=== PATIENT | female | born 1965 | race African-American/Black ===

== ENCOUNTER → 2020-05-04 13:57 | Outpatient (BNVA) | payer OTHER, SELFPAY | PROVIDERS: PCP Student in an Organized Health Care Education/Training Program; Referring Provider Emergency Medicine; Visit Provider Surgery | DX: K43.9 Ventral hernia without obstruction or gangrene (principal) | CPT/HCPCS: 99203 ==

== ENCOUNTER 2020-05-13 08:52 | Outpatient (REF) | payer OTHER, SELFPAY ==
--- NOTE | 2020-05-13 08:58 | US_ITS ---
EXAMINATION: US ABDOMEN LIMITED CLINICAL INFORMATION: Palpable mass midline abdomen cephalic to umbilicus. COMPARISON: None TECHNIQUE: Real-time imaging of the midline abdomen superior to umbilicus. FINDINGS: There is a small hypoechoic linear defect within the rectus abdominis muscle measuring 0.77 cm wide and corresponding to palpable lump consistent with small hernia containing mesentery. No bowel loop seen. There is no vascularity either. US/US abdomen limited IMPRESSION: Small midline supraumbilical hernia containing mesenteric fat.
== END 2020-05-13 08:53 | disposition home or self-care (01) ==
LOC: HO.HMGCX 08:52
PROVIDERS: PCP Student in an Organized Health Care Education/Training Program; Visit Provider Emergency Medicine
DX: R22.2 Localized swelling, mass and lump, trunk (principal)
CPT/HCPCS: 76705

== ENCOUNTER 2020-05-23 11:30 | Outpatient (REF) | payer OTHER, SELFPAY ==
--- NOTE | 2020-05-23 | MM_ITS ---
EXAMINATION: MM SCREENING DIGITAL BREAST TOMOSYNTHESIS, BILATERAL CLINICAL INFORMATION: Screening. Asymptomatic. The lifetime risk of breast cancer based on the Tyrer-Cuzick Model is 8%. COMPARISON: Mammography: 10/18/2018, 10/09/2017, 09/21/2016 TECHNIQUE: Digital breast tomosynthesis is performed in both the craniocaudal and mediolateral oblique views along with computer-aided detection (CAD). Synthesized 2D images are generated from the tomosynthesis. FINDINGS: There are scattered areas of fibroglandular density (ACR BI-RADS breast composition Category b). Parenchymal pattern is similar to prior studies. There is no developing density or interval mass or architectural abnormality. There are no abnormal calcifications. Question of grouped calcifications 12:00 right breast on prior mammography are not demonstrated on current exam. There are no abnormal calcifications. The axilla and skin contours are unremarkable. MM/MM tomosynthesis screening BI IMPRESSION: No mammographic evidence of malignancy. ASSESSMENT: BI-RADS 2: Benign RECOMMENDATION: Routine annual mammography screening. This patient's information was entered into a reminder system with a target due date for their next mammogram.
== END 2020-05-23 11:31 | disposition home or self-care (01) ==
LOC: HO.MAMMO 11:30
PROVIDERS: PCP Student in an Organized Health Care Education/Training Program; Visit Provider Student in an Organized Health Care Education/Training Program
DX: Z12.31 Encounter for screening mammogram for malignant neoplasm of breast (principal)
CPT/HCPCS: 77063; 77067

== ENCOUNTER 2020-06-13 06:10 | Day surgery (SDC) | payer OTHER, SELFPAY ==
[2020-06-01 18:58] VITALS: BMI 49.8
--- NOTE | 2020-06-06 15:06 | HO.ANESPROP2 ---
Documented by User: Namrata Garber 06/06/20 15:07 HPI - Anesthesia Eval Consult details Narrative: 54yo F for Hernia Repair [facility] Past Medical History Medical History Arthritis Colitis Iron deficiency anemia Family History Family History Maternal Aunt History of breast cancer Surgical History Surgical History History of colonoscopy Social History Social History Alcohol intake: current Alcohol intake frequency: holidays/special occasions only Smoking Status: Never smoker Second Hand Smoke Exposure: No Use of substances other than those prescribed or required for medical reasons: No Advance Directives: No Advance Directives Information Provided: No Advance Directives on File: No Recently lost weight without trying: No Meds Allergies Allergy/AdvReac Type Severity Reaction Status Date / Time pollen extracts [POLLEN] Allergy Unknown RUNNY NOSE Verified 05/11/20 19:14 , WATERY EYES SEASONAL ALLERGIES Allergy Mild NASAL Uncoded 05/11/20 19:14 IRRITATION Home Medications Medication Instructions Recorded Confirmed Type black cohosh 40 mg PO DAILY 06/01/20 06/01/20 History gjqndsacfpzy-Nx-tchi-minerals 1 tab PO DAILY 06/01/20 06/01/20 History Exam Exam Date and Time: June 06, 2020 1506 Height,Weight and Vital Signs: Height 5 ft 6 in Weight 140 kg Pertinent Lab Results Pertinent Lab Results: Laboratory Tests 12/25/19 08:40 Sodium 136 Potassium 4.8 Chloride 101 BUN 12 Creatinine 0.68 Assessment and Plan Assessment Anesthesia Assessment: Chart Reviewed Documented by User: Cat Miller 06/13/20 07:27 PMFSH Past Medical History Medical History Arthritis Colitis Iron deficiency anemia Family History Family History Maternal Aunt History of breast cancer Surgical History Surgical History History of colonoscopy Social History Social History Alcohol intake: current Alcohol intake frequency: holidays/special occasions only Smoking Status: Never smoker Second Hand Smoke Exposure: No Use of substances other than those prescribed or required for medical reasons: No Advance Directives: No Advance Directives Information Provided: No Advance Directives on File: No Recently lost weight without trying: No Meds Allergies Allergy/AdvReac Type Severity Reaction Status Date / Time pollen extracts [POLLEN] Allergy Unknown RUNNY NOSE Verified 05/11/20 19:14 , WATERY EYES SEASONAL ALLERGIES Allergy Mild NASAL Uncoded 05/11/20 19:14 IRRITATION Home Medications Medication Instructions Recorded Confirmed Type black cohosh 40 mg PO DAILY 06/01/20 06/01/20 History agmzftfvjuuk-Ty-shao-minerals 1 tab PO DAILY 06/01/20 06/01/20 History Assessment and Plan Final Anesthetic Review NPO: Yes ASA Class: I Final Preanesthetic Review: No Changes in Pt Med Stat, Meds/Allgs Chart Reviewed, Consent Obtained/Reviewed and Anes Risks/Benef Reviewed Patient Risk: Low Procedure Risk: Low Anesthetic Plan Anesthetic Plan: GA Disposition: Standard PACU
[2020-06-13 06:13] VITALS: BMI 22.6
[2020-06-13 06:20] VITALS: BP 139/89; PULSE 67; RESP 18; TEMP 36.7; O2SAT 100
[2020-06-13] MEDS: Lactated Ringers 1,000 ML 100 ML IVCONT (07:00)
--- NOTE | 2020-06-13 07:21 | MHC.SHP ---
Pre-Procedural Eval Section A The patient is an INPATIENT: No Changes since office visit: Yes Patient answered all questions; No Cold of Flu in the past 2 weeks, No New Medical Problems and No Changes in Medication The History & Physical has been completed within 30 days and I have reviewed it.: Yes Section B Chief Complaint: Ventral Hernia Allergies: Allergies Allergy/AdvReac Type Severity Reaction Status Date / Time pollen extracts [POLLEN] Allergy Unknown RUNNY NOSE Verified 05/11/20 19:14 , WATERY EYES SEASONAL ALLERGIES Allergy Mild NASAL Uncoded 05/11/20 19:14 IRRITATION Plan Diagnosis/Plan: Unchanged Patient has been examined and remains a candidate for the planned procedure
--- NOTE | 2020-06-13 07:27 | P.CONAN_ITS ---
[facility], [facility] Past Medical History Medical History Arthritis Colitis Iron deficiency anemia Family History Family History Maternal Aunt History of breast cancer Surgical History Surgical History History of colonoscopy Social History Social History Alcohol intake: current Alcohol intake frequency: holidays/special occasions only Smoking Status: Never smoker Second Hand Smoke Exposure: No Use of substances other than those prescribed or required for medical reasons: No Advance Directives: No Advance Directives Information Provided: No Advance Directives on File: No Recently lost weight without trying: No Meds Allergies Allergy/AdvReac Type Severity Reaction Status Date / Time pollen extracts [POLLEN] Allergy Unknown RUNNY NOSE Verified 05/11/20 19:14 , WATERY EYES SEASONAL ALLERGIES Allergy Mild NASAL Uncoded 05/11/20 19:14 IRRITATION Home Medications Medication Instructions Recorded Confirmed Type black cohosh 40 mg PO DAILY 06/01/20 06/01/20 History bweowrjaheku-Np-yxlv-minerals 1 tab PO DAILY 06/01/20 06/01/20 History Exam Exam Date and Time: June 13, 2020726 Height,Weight and Vital Signs: Height 5 ft 6 in Weight 63.503 kg Last Vital Signs Temp 98.1 F 06/13/20 06:20 Pulse 67 06/13/20 06:20 Resp 18 06/13/20 06:20 BP 139/89 06/13/20 06:20 Pulse Ox 100 06/13/20 06:20 Airway Mallampati Class: II TM Dist: >3cm Neck ROM: Full Heart: RRR Lungs: CTA
[2020-06-13] MEDS: ceFAZolin Sodium/Dextrose,Iso 2 GM/50 ML PIGGYBACK IV (07:32)
--- NOTE | 2020-06-13 08:18 | P.BOP_ITS ---
Brief Operative Note Date of Service: 06/13/20 Pre-op diagnosis: Ventral hernia Post-op diagnosis: same Procedure: Repair of ventral hernia with mesh Implants: 4.[address] mesh Surgeon: Rock Krueger MD Anesthesia: GLMA [employer] Scientist: Leticia Alarcon Estimated blood loss (mL): 5 Pathology: none sent Condition: stable Disposition: PACU
--- NOTE | 2020-06-13 08:19 | W.PM.OPN ---
Operative Note Operative Note Date of Service: 06/13/20 Narrative: Preoperative Diagnosis: Ventral hernia Postoperative Diagnosis: same Procedure: Repair of Ventral Hernia with mesh Surgeon: Rock Krueger MD Anesthesia: General LMA Indications: 54 year old female patient with a palpable hernia above the umbilicus in the midline with no previous history of surgery in this location. Site is tender to palpation. Findings: 1.5 cm ventral hernia with incarcerated preperitoneal fat EBL: 5 ml Specimen: none Complications: none Procedure details: The patient was brought to the OR and placed in a supine position. After administering general anesthesia the patient's abdomen was prepped with ChloraPrep and draped in a sterile fashion. A surgical time-out was called and consent confirmed. Patient received preoperative antibiotics and Venodyne boots were in place. Local anesthesia consisting of 0.75% Sensorcaine was then infiltrated in subcutaneous tissue around the hernia in the upper midline. In a longitudinal incision was made directly over the hernia with a scalpel carried out through subcutaneous tissue. The hernia sac was identified and dissected free from the surrounding subcutaneous tissue. Hernia sac was then dissected down to the fascial defect. A 2nd opening was noted slightly lower and was included in the opening. Fascial margins were then further defined with electrocautery. A preperitoneal space was then created using sharp dissection with electrocautery. Hemostasis was assured using electrocautery. A 4.[address] mesh was then obtained. This was placed in the preperitoneal space and secured to the fascia using [id number] 1. Tycron sutures. The fascia was closed over the mesh. Wounds were then irrigated with saline and additional local anesthesia infiltrated into the subcutaneous tissue. Deep subcutaneous tissue and dermis were reapproximated using interrupted 3-0 Polysorb sutures. Skin was then closed using a running subcuticular 4-0 Polysorb suture. Steri-Strips 2 x 2 gauze and Tegaderm were then applied. The patient tolerated the procedure well. Sponge, instrument, needle counts reported as correct. The patient was transferred to PACU in stable condition.
[2020-06-13 08:27] VITALS: BP 167/87; PULSE 78; RESP 16; TEMP 36.4; O2SAT 99
[2020-06-13 08:32] VITALS: BP 155/95; PULSE 72; RESP 16; O2SAT 100
[2020-06-13 08:37] VITALS: BP 154/89; PULSE 74; RESP 16; O2SAT 100
[2020-06-13 08:42] VITALS: BP 154/81; PULSE 70; RESP 16; O2SAT 100
[2020-06-13 08:57] VITALS: BP 159/70; PULSE 64; RESP 16; TEMP 36.4; O2SAT 100
== END 2020-06-13 23:59 | disposition home or self-care (01) ==
PROVIDERS: PCP Student in an Organized Health Care Education/Training Program; Visit Provider Surgery
PROC: (CPT 49560; principal; 2020-06-13 07:30)
DX: K43.9 Ventral hernia without obstruction or gangrene (principal)
CPT/HCPCS: 49560; 49568; C1781; J0690; J1100; J1885; J2250; J2405; J3010

== ENCOUNTER → 2020-06-21 08:50 | Outpatient (BNVA) | payer OTHER, SELFPAY | PROVIDERS: PCP Student in an Organized Health Care Education/Training Program; Visit Provider Surgery | DX: K43.9 Ventral hernia without obstruction or gangrene (principal) | CPT/HCPCS: 99212 ==

== ENCOUNTER → 2020-07-22 09:04 | Outpatient (BNVA) | payer OTHER, SELFPAY | PROVIDERS: PCP Student in an Organized Health Care Education/Training Program; Visit Provider Surgery | DX: K43.9 Ventral hernia without obstruction or gangrene (principal) | CPT/HCPCS: 99212 ==

== ENCOUNTER 2021-05-15 11:54 | Outpatient (REF) | payer OTHER, SELFPAY | END 2021-05-15 11:55 | disposition home or self-care (01) | LOC: HO.HMGCLDS 11:54 | PROVIDERS: PCP Student in an Organized Health Care Education/Training Program; Visit Provider Internal Medicine | DX: Z20.822 Contact with and (suspected) exposure to COVID-19 (principal) | CPT/HCPCS: C9803; U0003; U0005 ==

== ENCOUNTER 2021-11-01 11:47 | Outpatient (REF) | payer OTHER, SELFPAY ==
--- NOTE | ~2021-11-01 | MM_ITS ---
EXAMINATION: MM SCREENING DIGITAL BREAST TOMOSYNTHESIS, BILATERAL CLINICAL INFORMATION: Screening. Asymptomatic. The lifetime risk of breast cancer based on the Tyrer-Cuzick Model is 7%. COMPARISON: Mammography: 05/23/2020, 10/18/2018, 10/09/2017 TECHNIQUE: Digital breast tomosynthesis is performed in both the craniocaudal and mediolateral oblique views along with computer-aided detection (CAD). Synthesized 2D images are generated from the tomosynthesis. FINDINGS: There are scattered areas of fibroglandular density (ACR BI-RADS breast composition Category b). There are no significant masses, abnormal calcifications, or other abnormalities. Parenchymal pattern is similar to prior studies. The axilla and skin contours are unremarkable. MM/MM tomosynthesis screening BI IMPRESSION: There are no significant changes from prior study. ASSESSMENT: BI-RADS 1: Negative RECOMMENDATION: Routine annual mammography screening. This patient's information was entered into a reminder system with a target due date for their next mammogram.
== END 2021-11-01 11:48 | disposition home or self-care (01) ==
LOC: HO.MAMMO 11:47
PROVIDERS: Visit Provider Student in an Organized Health Care Education/Training Program
DX: Z12.31 Encounter for screening mammogram for malignant neoplasm of breast (principal)
CPT/HCPCS: 77063; 77067

== ENCOUNTER 2022-11-08 11:34 | Outpatient (REF) | payer OTHER, SELFPAY ==
--- NOTE | ~2022-11-08 | MM_ITS ---
EXAMINATION: MM SCREENING DIGITAL BREAST TOMOSYNTHESIS, BILATERAL CLINICAL INFORMATION: Screening. Asymptomatic. The lifetime risk of breast cancer based on the Tyrer-Cuzick Model is 7.4%. COMPARISON: Mammography: 11/01/2021 and studies dating back to 09/30/2013. TECHNIQUE: Digital breast tomosynthesis is performed in both the craniocaudal and mediolateral oblique views along with computer-aided detection (CAD). Synthesized 2D images are generated from the tomosynthesis. FINDINGS: The breasts are heterogeneously dense, which may obscure small masses (ACR BI-RADS breast composition Category c). There are no significant masses, abnormal calcifications, or other abnormalities. There is a grouping of calcifications seen about the medial aspect central right breast; however, on tomosynthesis views these are noted to be vascular in nature. MM/MM tomosynthesis screening BI IMPRESSION: No significant changes from prior exam. ASSESSMENT: BI-RADS 1: Negative. RECOMMENDATION: Routine annual mammography screening. This patient's information was entered into a reminder system with a target due date for their next mammogram.
== END 2022-11-08 11:35 | disposition home or self-care (01) ==
LOC: HO.MAMMO 11:34
PROVIDERS: PCP Student in an Organized Health Care Education/Training Program; Visit Provider Student in an Organized Health Care Education/Training Program
DX: Z12.31 Encounter for screening mammogram for malignant neoplasm of breast (principal)
CPT/HCPCS: 77063; 77067

== ENCOUNTER 2023-03-27 09:38 | Outpatient (REF) | payer OTHER, SELFPAY ==
[2023-03-27 14:25] LABS: Alanine Aminotransferase 16 U/L (0-31); Albumin Level 4.4 g/dL (3.5-5.0); Alkaline Phosphatase 73 U/L (39-117); Aspartate Amino Transferase 18 U/L (5-31); Bilirubin Direct 0.2 mg/dL (0.0-0.5); Bilirubin Total 0.6 mg/dL (0.0-1.0); Cholesterol 264 mg/dL (<200); HDL Cholesterol 99 mg/dL (>40); LDL Cholesterol Calculated 154 mg/dL (<100); Total Protein 7.7 g/dL (6.5-8.0); Triglycerides 58 mg/dL (<150)
== END 2023-03-27 09:39 | disposition home or self-care (01) ==
LOC: HO.CHCLDS 09:38
PROVIDERS: Visit Provider Student in an Organized Health Care Education/Training Program
DX: I10 Essential (primary) hypertension (principal)
CPT/HCPCS: 36415; 80061; 80076

== ENCOUNTER 2023-12-04 13:36 | Outpatient (REF) | payer OTHER, SELFPAY | END 2023-12-04 13:37 | disposition home or self-care (01) | LOC: HO.MAMMO 13:36 | PROVIDERS: PCP Student in an Organized Health Care Education/Training Program; Visit Provider Student in an Organized Health Care Education/Training Program | DX: Z12.31 Encounter for screening mammogram for malignant neoplasm of breast (principal) | CPT/HCPCS: 77063; 77067 ==

== ENCOUNTER → 2023-12-04 13:45 | Outpatient (BNV) | payer OTHER, SELFPAY | PROVIDERS: PCP Student in an Organized Health Care Education/Training Program; Visit Provider Radiology Diagnostic Radiology | DX: Z12.31 Encounter for screening mammogram for malignant neoplasm of breast (principal) | CPT/HCPCS: 77063; 77067 ==

== ENCOUNTER 2024-03-17 14:36 | Outpatient (REF) | payer OTHER, SELFPAY ==
[2024-03-19 13:14] LABS: HPV mRNA E6/E7 Not Detected (Not Detected)
== END 2024-03-17 14:37 | disposition home or self-care (01) ==
LOC: HO.CHCLNP 14:36
PROVIDERS: Visit Provider Family Medicine
DX: Z12.4 Encounter for screening for malignant neoplasm of cervix (principal)
CPT/HCPCS: 36415; 87624; 88175

== ENCOUNTER 2025-04-14 13:16 | Outpatient (REF) | payer OTHER, SELFPAY ==
--- OUTSIDE RECORDS SUMMARY | 2025-04-14 14:28 | XMS_ITS | Clinical Summary ---
Author Organization [facility] Address [address] [place] [address] Phone Care Team Providers Care Childbirth And Infant Care Teacher Name Role Phone Bisi Carpenter MD Primary Care Provider [phone] Allergies Active Allergy Reactions Criticality Noted Date Comments Pollen Extracts 11/30/2020 Medications hydroCHLOROthia zide 12.5 mg tablet Take 1 tablet (12.5 mg total) by mouth 1 (one) time each day. 2 Active predniSONE (DELTASONE) 10 mg tablet Please take 4 pills of prednisone for 5 days, then take 3 pills of prednisone for 5 days, then take 2 pills of prednisone for 5 days, then took 1 pill of prednisone for 5 days, then take half a pill of prednisone for 5 days 60 tablet 1 5 Active Additional Information Patient not taking.Reported on 12/17/2024 oxyCODONE (ROXICODONE) 5 mg immediate release tablet Take 1 tablet (5 mg total) by mouth every 6 (six) hours if needed for severe pain. Max Daily Amount: 20 mg 15 tablet 5 Active mesalamine (LIALDA) 1.2 gram EC tablet Take 2 tablets (2.4 g total) by mouth 1 (one) time each day with breakfast. 180 tablet 3 5 12/18/19 26 Active polyethylene glycol (Golytely) 236-22.74-6.74 -5.86 gram solution Take 4L by mouth once for one dose. May substitue any PEG. Starting at 2PM the day before your procedure drink 1 8oz glasses at your own pace until you complete half of the gallon. Finish 2nd half of the gallon at 8PM. 4000 mL 5 Active bisacodyL (DULCOLAX) 5 mg EC tablet Take 2 tablets by mouth right before beginning bowel prep. 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 (CMS/HCC V24, CMS/[facility] V28) 12/17/2024 Encounters Date Type Department Care Team Description 01/14/2025 8:18 AM EDT - 01/14/2025 11:59 PM EDT Hospital Encounter [facility] [address] [place] [address] Pain Discharge Disposition: Home or Self Care from Last 3 Months Social History Tobacco Use Types Packs/Day Years Used Date Smoking Tobacco: Never Assessed Comments Unknown Sex and Gender Information Value Date Recorded Sex Assigned at Not on file Legal Sex Female 8:34 PM EST Gender Identity Not on file Sexual Orientation Not on file Obstetrics History Last Filed Vital Signs Vital Sign Reading Time Taken Comments Blood Pressure 108/68 12/17/2024 1:14 PM EDT Pulse 70 12/17/2024 1:14 PM EDT Temperature 36.4 C (97.6 F) 12/14/2024 1:16 PM EDT Respiratory Rate 16 12/14/2024 1:16 PM EDT Oxygen Saturation 100% 12/08/2024 1:59 PM EDT Inhaled Oxygen Concentration - - Weight 68.9 kg (152 lb) 02/24/2025 2:00 PM EDT Height 167.6 cm (5' 6 ) 02/24/2025 2:00 PM EDT Body Mass Index 24.53 02/24/2025 2:00 PM EDT Plan of Treatment Health Maintenance Due Date Last Done Comments Breast Cancer Screening 1965 Cervical Cancer Screening: Pap Smear 09/16/1984 Hepatitis B Vaccines (3 of 3 - 19+ 3-dose series) 12/21/2004 10/26/2004, 01/24/2004 Pneumococcal Vaccine: 50+ Years (1 of 1 - PCV) 09/16/2013 Zoster Vaccines (1 of 2) 09/16/2013 HIV Screening 06/16/2022 Hepatitis C Screening 06/16/2022 Social Influencers of Health Screening 06/16/2022 Depression Screening 07/15/2024 COVID-19 Vaccine ( season) 2025 06/14/2022, 03/11/2022, 11/14/2020, Additional history exists Influenza Vaccine (#1) 2025 , 06/23/2021, 04/14/2020 Hypertension/CHF/CAD Annual BMP Blood Test 12/14/2025 12/14/2024, 12/08/2024 Cholesterol Screening (Lipid Panel) 03/27/2028 03/27/2023 DTaP,Tdap,and Td Vaccines (2 - Td or Tdap) 06/23/2031 06/23/2021 Colorectal Cancer Screening: Colonoscopy 12/02/2031 12/01/2021 RSV Immunization Adult Patients (1 - 1-dose 75+ series) 09/16/2038 Hepatitis A Vaccines Aged Out 10/26/2004, 01/24/20 04 No longer eligible based on patient's age to complete this topic HIB Vaccines Aged Out No longer eligi ble based on patient's age to complete this topic HPV Vaccines Aged Out No longer eligi ble based on patient's age to complete this topic IPV Vaccines Aged Out No longer eligi ble based on patient's age to complete this topic MMR Vaccines Aged Out No longer eligi ble based on patient's age to complete this topic Meningococcal ACWY Vaccine Aged Out N o longer eligible based on patient's age to complete this topic Meningococcal B Vaccine Aged Out No l onger eligible based on patient's age to complete this topic RSV Immunization Patients Under 20 months Aged Out No longer eligible based on patient's age to complete this topic Varicella Vaccines Aged Out No longer eligible based on patient's age to complete this topic Procedures Procedure Name Priority Date/Time Associated Diagnosis Comments XR FOOT 3+ VIEWS LEFT Routine 01/14/2025 8:32 AM EDT Pain BASIC METABOLIC PANEL STAT 12/14/2024 1:29 PM EDT from Last 3 Months or Most Recently Relevant to Health Maintenance Results * XR Foot 3+ Views Left (01/14/2025 8:32 AM EDT) Narrative RIS PACS/VR - 01/14/2025 8:32 AM EDT This order has been auto-finalized and does not contain a result. us Alfa Miller MD IMG XR PROCEDURES Final R esult RIS PACS/VR * (ABNORMAL) Basic metabolic panel (12/14/2024 1:29 PM EDT) Sodium 137 133 - 145 mmol/L LAB CHEMISTRY METHOD 12/14/2024 2:19 PM [facility] Potassium 4.3 3.5 - 5.5 mmol/L LAB CHEMISTRY METHOD 12/14/2024 2:19 PM [facility] Chloride 100 96 - 110 mmol/L LAB CHEMISTRY METHOD 12/14/2024 2:19 PM [facility] CO2 27 21 - 32 mmol/L LAB CHEMISTRY METHOD 12/14/2024 2:19 PM [facility] Anion Gap 10 3 - 11 LAB CHEMISTRY METHOD 12/14/2024 2:19 PM [facility] Glucose 139(H) 70 - 100 mg/dL LAB CHEMISTRY METHOD 12/14/2024 2:19 PM [facility] BUN 14 5 - 25 mg/dL LAB CHEMISTRY METHOD 12/14/2024 2:19 PM [facility] Creatinine 0.94 0.50 - 1.10 mg/dL LAB CHEMISTRY METHOD 12/14/2024 2:19 PM [facility] eGFR 69 >=60 mL/min/1. 73m2 LAB CHEMISTRY METHOD 12/14/2024 2:19 PM [facility] Comment:Calculation based on the Chronic Kidney Disease Epidemiology Collaboration (CKD-EPI) equation refit without adjustment for race. BUN/Creatinine Ratio 14.9 LAB CHEMISTRY METHOD 12/14/2024 2:19 PM [facility] Calcium 9.2 8.5 - 10.5 mg/dL LAB CHEMISTRY METHOD 12/14/2024 2:19 PM EDT [facility] Blood Venous blood specimen / Unknown Venipuncture / Unknown 12/14/2024 1:29 PM EDT 12/14/2024 1:42 PM EDT us Gilson Multani DO LAB BLOOD ORDERABLES Final Result [facility] [address] [place] [address], from Last 3 Months or Most Recently Relevant to Health Maintenance Insurance [facility] [employer] Care Teams Childbirth And Infant Care Teacher Relationship Specialty Start Date End Date Bisi Carpenter MD [address] [place] [address] PCP - General 12/25/19
--- OUTSIDE RECORDS SUMMARY | 2025-04-14 14:28 | XMS_ITS | Encounter Summary ---
Author Organization [employer] Address [address] [facility] [address] [place] [address] Care Team Providers Care Steel Hanger Name Role Phone Bisi Carpenter MD Primary Care Provider [phone] Piyush Acosta CNP Primary Care Provider [phone] Encounter Details Date Type Department Care Team (Late st Contact Info) Description 12/14/2024 Orders Only [facility] [address] [place], [place] [id number] Provider, MD Anam Social History Tobacco Use Types Packs/Day Years Used Date Smoking Tobacco: Never Smokeless Tobacco: Never Alcohol Use Standard Drinks/Week Comments Yes 0 (1 standard drink = 0.6 oz pur e alcohol) Social Depression Answer Date Recorded Patient Health Questionnaire-9 Score 0 03/27/2023 Housing Stability Answer Date Recorded What is your housing situation today? I have swapna steinberg 05/13/[address] you li ve. Do you have problems with any of the following? None of the above 05/13/2023 Food Insecurity Answer Date Recorded Within the past 12 months, y ou worried that your food would run out before you got money to buy more: Never True 05/13/2023 Within the past 12 months,th e food you bought just didn't last and you didn't have enough money to get more: Never True Transportation Answer Date Recorded In the past 12 months, has l ack of transportation kept you from medical appts, meetings, work or from getting things needed for daily living? No 05/13/2023 Utilities Answer Date Recorded In the past 12 months, has t he electric, gas, oil or water company threatened to shut off services in your home? No 05/13/2023 Depression Answer Date Recorded Patient Health Questionnaire-2 Score 0 03/27/2023 Comments No Sex and Gender Information Value Date Recorded Sex Assigned at Female 05/14/2022 10:17 AM EDT Legal Sex Female 10:17 AM EDT Gender Identity Female 03/17/2024 4:43 PM EDT Sexual Orientation Straight 03/13/2023 11 :11 AM EDT documented as of this encounter Plan of Treatment Not on file documented as of this encounter Procedures Procedure Name Priority Date/Time Associated Diagnosis Comments VASC US LOWER EXTREMITY VENOUS DUPLEX LEFT Routine 12/14/2024 4:16 PM EDT XR FOOT 3+ VIEWS LEFT Routine 12/14/2024 4:14 PM EDT documented in this encounter Results * VASC US LOWER EXTREMITY VENOUS DUPLEX LEFT (12/14/2024 4:16 PM EDT) Historical Provider CV VASCULAR PROCEDURES Fi nal Result * XR Foot 3+ Views Left (12/14/2024 4:14 PM EDT) Anatomical Region Laterality Modality Lower Extremities, Foot Left Radiogra phic Imaging Historical Provider IMG XR PROCEDURES Final R esult documented in this encounter Visit Diagnoses Not on filedocumented in this encounter Additional Health Concerns Assessment Noted Time PHQ-9 Depression Total Score: 0 03/27/20 23 9:16 AM EDT documented as of this encounter Care Teams Steel Hanger Relationship Specialty Start Date End Date Bisi Carpenter MD [address] [place] [address] PCP - General Family Medicine 12/18/19 02/21/25 Piyush Acosta CNP [address] [place] [address] PCP - General Family Medicine 02/22/25 documented as of this encounter
--- OUTSIDE RECORDS SUMMARY | 2025-04-14 14:28 | XMS_ITS | Encounter Summary ---
Author Organization [employer] Address [address] [facility] [address] [place] [address] Care Team Providers Care Fitness Assistant Name Role Phone Bisi Carpenter MD Primary Care Provider [phone] Piyush Acosta CNP Primary Care Provider [phone] Encounter Details Date Type Department Care Team (Late st Contact Info) Description 12/08/2024 Orders Only [facility] [address] [place], [place] [phone] Provider, MD Anam Social History Tobacco Use [...] Procedure Name Priority Date/Time Associated Diagnosis Comments CT ABDOMEN PELVIS W CONTRAST Routine 12/08/2024 2:42 PM EDT documented in this encounter Results * CT Abdomen Pelvis w/ Contrast (12/08/2024 2:42 PM EDT) Anatomical Region Laterality Modality Body, Pelvis, Abdomen Computed T omography us Historical Provider MD [place] CT PROCEDURES Final R esult documented in this encounter Visit Diagnoses Not on filedocumented in this encounter Additional Health Concerns Assessment Noted Time PHQ-9 Depression Total Score: 0 03/27/20 23 9:16 AM EDT documented as of this encounter Care Teams Fitness Assistant Relationship Specialty Start Date End Date Bisi Carpenter MD [address] [place] [address] PCP - General Family Medicine 12/18/19 02/21/25 Piyush Acosta CNP [address] [place] [address] PCP - General Family Medicine 02/22/25 documented as of this encounter
--- OUTSIDE RECORDS SUMMARY | 2025-04-14 14:28 | XMS_ITS | Encounter Summary ---
Author Organization [employer] Address [address] [facility] 7t [place] [address] Care Team Providers Care Manager File Name Role Phone Bisi Carpenter MD Primary Care Provider [phone] Piyush Acosta CNP Primary Care Provider [phone] Reason for Visit * Reason Comments Med Refill Encounter Details Date Type Department Care Team ([facility] st Contact Info) Description 01/26/2023 Refill [facility] CHC MED & PEDS [address] [place], [place] [phone] Raven Urbina MD [address] [place] [address] Elevated blood pressure reading in office with diagnosis of hypertension Social History Tobacco Use Types Packs/Day Years [...] on file documented as of this encounter Visit Diagnoses Diagnosis Elevated blood pressure reading in office with diagnosis of hypertension documented in this encounter Care Teams Manager File Relationship Specialty Start Date End Date Bisi Carpenter MD [address] [place], [place] [phone] PCP - General Family Medicine 12/18/19 02/21/25 Piyush Acosta CNP [address] [place] [address] PCP - General Family Medicine 02/22/25 documented as of this encounter
--- OUTSIDE RECORDS SUMMARY | 2025-04-14 14:28 | XMS_ITS | Encounter Summary ---
Author Organization [employer] Address [address] [facility] 7t [place] [address] Care Team Providers Care Public Health Clinical Nurse Specialist Name Role Phone Bisi Carpenter MD Primary Care Provider [phone] Piyush Acosta CNP Primary Care Provider [phone] Encounter Details Date Type Department Care Team (Late st Contact Info) Description 03/18/2024 Orders Only [facility] [address] [place] [address] Provider, MD Anam Social History Tobacco Use [...] Procedure Name Priority Date/Time Associated Diagnosis Comments COLONOSCOPY Routine 03/30/2014 2:40 PM EDT COLONOSCOPY Routine 03/30/2014 10:18 AM EDT documented in this encounter Results * Colonoscopy (03/30/2014 2:40 PM EDT) Anatomical Region Laterality Modality Endoscopy Historical Provider ENDOSCOPY PROCEDURE ORDER HILLARY Final Result * Colonoscopy (03/30/2014 10:18 AM EDT) Anatomical Region Laterality Modality Endoscopy Historical Provider ENDOSCOPY PROCEDURE ORDER HILLARY Final Result documented in this encounter Visit Diagnoses Not on filedocumented in this encounter Additional Health Concerns Assessment Noted Time PHQ-9 Depression Total Score: 0 03/27/20 23 9:16 AM EDT documented as of this encounter Care Teams Public Health Clinical Nurse Specialist Relationship Specialty Start Date End Date Bisi Carpenter MD [address] [place] [address] PCP - General Family Medicine 12/18/19 02/21/25 Piyush Acosta CNP [address] [place] [address] PCP - General Family Medicine 02/22/25 documented as of this encounter
--- OUTSIDE RECORDS SUMMARY | 2025-04-14 14:28 | XMS_ITS | Clinical Summary ---
Author Organization [employer] Address 75 [facility] 7t [place] [address] Care Team Providers Care Mallet Cutter Name Role Phone Piyush Acosta CNP Primary Care Provider [phone] Allergies Active Allergy Reactions Criticality Noted Date Comments Gramineae Pollens 11/30/2020 Medications Blood Pressure kit Check BP daily 1 kit 3 Active aspirin 81 MG EC tablet Take 1 tablet by mouth at bed time. Active mesalamine (Lialda) 1.2 g EC tablet Take 1.2 g by mouth with breakfast. 3 Active D3-1000 25 MCG (1000 UT) capsule TAKE 1 CAPSULE (25 MCG) BY MOUTH IN THE MORNING. 90 capsule 3 4 Active hydroCHLOROthiazi de 12.5 MG tabletIndications :Elevated blood pressure reading in office with diagnosis of hypertension TAKE 1 TABLET BY MOUTH EVERY DAY IN THE MORNING 90 tablet 5 Active Active Problems Problem Noted Date Diagnosed Date Cervical cancer screening 03/17/2024 Assessment & Plan (03/17/2024 11:27 AM EDT): 58 y.o. here for cervical cancer screening. Will continue monitoring following ASCCP guidelines. Colon cancer screening 03/17/2024 Primary hypertension 03/27/2023 Crohn's disease (CMS/HCC) 11/29/2020 Encounters Date Type Department Care Team Description 01/30/2025 Refill [facility] CHC MED & PEDS [address] [place], [place] [phone] Bisi Carpenter MD Elevated blood pressure reading in office with diagnosis of hypertension from Last 3 Months Immunizations Immunization Administration Dates Next Due Hep A, Adult 10/26/2004,01/24/2004 Hep B, adult 10/26/2004,01/24/2004 Influenza injectable quadriv alent preservative free 03/27/2023,06/23/2021,04/14/2020 Pfizer Covid-19 Vaccine 12+ 11/14/2020 Tdap 06/23/2021 Social History Tobacco Use Types Packs/Day Years Used Date Smoking Tobacco: Never Smokeless Tobacco: Never Tobacco Cessation:Counseling Given: Not Answered Alcohol Use Standard Drinks/Week Comments Yes 0 (1 standard drink = 0.6 oz pur e alcohol) Social Depression Answer Date Recorded Patient Health Questionnaire-9 Score 0 03/27/2023 Housing Stability Answer Date Recorded What is your housing situation today? I have swapnajennie steinberg 05/13/[address] you [...] Orientation Straight 03/13/2023 11 :11 AM EDT Last Filed Vital Signs Vital Sign Reading Time Taken Comments Blood Pressure 142/88 03/17/2024 11:04 AM EDT Pulse 74 03/17/2024 11:04 AM EDT Temperature 36.8 C (98.2 F) 03/17/2024 11:04 AM EDT Respiratory Rate 18 03/17/2024 11:04 AM EDT Oxygen Saturation 98% 03/17/2024 11:04 AM EDT Inhaled Oxygen Concentration - - Weight 79.7 kg (175 lb 9.6 oz) 03/17/2024 11:04 AM EDT Height 170.2 cm (5' 7 ) 03/17/2024 11:04 AM EDT Body Mass Index 27.5 03/17/2024 11:04 AM EDT Plan of Treatment Health Maintenance Due Date Last Done Comments CT Colonography 1965 FIT DNA/Cologuard 1965 FIT 1965 FOBT 1965 HIV Screening 1965 Sigmoidoscopy 1965 Disability Screening 1965 Alcohol/Substance Use Screening 1975 Hepatitis C Screening 09/16/1981 Hepatitis B Vaccines (3 of 3 - 19+ 3-dose series) 12/21/2004 10/26/2004, 01/24/2004 Pneumococcal Vaccine: 50+ Years (1 of 1 - PCV) 09/16/2013 Zoster Vaccines (1 of 2) 09/16/2013 Depression Screening 03/27/2024 03/27/2023, 03/27/20 23 SDOH Screening 03/27/2024 03/27/2023 Colonoscopy 03/30/2024 03/30/2014, 03/30/2014 Colorectal Cancer Screening 03/30/2024 Mammogram 12/03/2024 12/04/2023, 04/01/2023, 10/20/2018, Additional history exists COVID-19 Vaccine ( season) 2025 06/14/2022, 03/11/2022, 11/14/2020, Additional history exists Influenza Vaccine (#1) 2025 , 06/23/2021, 04/14/2020 Tobacco Screening 03/17/2025 03/17/2024 Lipid Panel 03/27/2028 03/27/2023, 08/15/2021 Cervical Cancer Screening 03/17/2029 HPV/Cotest 03/17/2029 03/17/2024 Pap Smear 03/17/2029 03/17/2024, 12/13/2020 DTaP/Tdap/Td Vaccines (2 - Td or Tdap) 06/23/2031 06/23/2021 RSV Patients and Patients Aged 60 years or older (1 - 1-dose 75+ series) 09/16/2038 Hepatitis [...] patient's age to complete this topic Meningococcal Vaccine Aged Out No fidel nicolas eligible based on patient's age to complete this topic RSV under 20 months Aged Out No longe r eligible based on patient's age to complete this topic Rotavirus Vaccines Aged Out No longer eligible based on patient's age to complete this topic Procedures Procedure Name Priority Date/Time Associated Diagnosis Comments THINPREP IMAGING PAP AND HPV MRNA E6/E7 Routine 03/17/2024 11:25 AM EDT BI MAMMOGRAM SCREENING TOMOSYNTHESIS BILATERAL Routine 12/04/2023 2:03 PM EDT LIPID PANEL, STANDARD Routine 03/27/2023 9:42 AM EDT Primary hypertension COLONOSCOPY Routine 03/30/2014 10:18 AM EDT from Last 3 Months or Most Recently Relevant to Health Maintenance Results * ThinPrep Imaging Pap and HPV mRNA E6/E7 (03/17/2024 11:25 AM EDT) HPV nRNA E6/E7 Not Detected Not Detected [facility] Comment:Methodology: Transcr iption-Mediated AmplificationThis assay detects E6/E7 viral messenger RNA (mRNA) from 14high-risk HPV types (16,18,31,33,35,39,45,51,52,56,58,59,66,68).Cervical sources are required for HPV testing.If a vaginal source from a patient who has had atotal hysterectomy with removal of cervix wassubmitted, please contact the testing laboratoryfor alternative testing options.For additional information, please refer [email or web address] Website Promotions/faq/ZRJ087p0(This link if provided for information/educational purposes only.)THIS TEST WAS PERFORMED AT:[facility] [address] [id number] DOMINGO MD SOURCE: SEE NOTE [facility] Comment:Cervix Report Status: [facility] Clinical Information: SEE NOTE [facility] Comment:Routine exam LMP: SEE NOTE [facility] Comment:NONE GIVEN Prev. PAP: SEE NOTE [facility] Comment:NONE GIVEN Prev. BX: SEE NOTE [facility] Comment:NONE GIVEN Statement Of Adequacy: SEE NOTE [facility] Comment:S[employer]IS[employer]ORY FOR MAHESH LUATION General Categorization: [facility] Interpretation/Result: SEE NOTE [facility] Comment:Cytology Results: Ne gative for intraepitheliallesion or malignancy. Cytology Comment SEE NOTE [facility] Comment:This Pap test has be en evaluated with computerassisted technology. Chocolate Production Machine Operator: SEE NOTE [facility] Comment:KR, CT(ASCP)CT scree madonna location: [address] [address] Review Chocolate Production Machine Operator: [facility] Pathologist [facility] PAP Infection [facility] See Note SEE NOTE [facility] Comment:EXPLANATORY NOTE:The Pap is a screening test for cervical cancer. It isnot a diagnostic test and is subject to false negativeand false positive results. It is most reliable when asatisfactory sample, regularly obtained, is submittedwith relevant clinical findings and history, and whenthe Pap result is evaluated along with historic andcurrent clinical information. 03/17/2024 11:2 5 AM EDT 03/17/2024 2:39 PM EDT Narrative [facility] - 03/20/2024 11:18 AM EDT SEE SCANNED RESULTS IN EMRROUTINECERVICAL us Raven Urbina MD LAB PATHOLOGY ORDERABLES Maria Guadalupe herrera Result [facility] [address] [place] [address] [phone] * BI Mammogram Screening Tomosynthesis Bilateral (12/04/2023 2:03 PM EDT) Anatomical Region Laterality Modality Breast Bilateral Mammography 12/04/2023 2:03 PM EDT Narrative 12/30/2023 7:38 AM EDT [facility] [address] [place] [address] Mammography Report Signed Patient: Raven Nevarez MR# : [id number] : 1965 Acct:[id number] Age/Sex: 58 / F ADM Date: 12/04/23 Loc: HO.MAMMO Attending Dr: Bisi Carpenter MD Ordering Physician: Bisi Carpenter MD Results: 1Negati ve Date of Service: 12/04/23 Follow Up: 1 Year From [facility] Mammogram Procedure(s): MM tomosynthesis screening BI Accession Number(s): [id number] cc: Bisi Carpenter MD EXAMINATION: MM SCREENING DIGITAL BREAST TOMOSYNTHESIS, BILATERAL CLINICAL INFORMATION: Screening. Asymptomatic. COMPARISON: Mammography: This study is compared with prior exams dating back to 2019. TECHNIQUE: Digital breast tomosynthesis is performed in both the craniocaudal and mediolateral oblique views along with computer-aided detection (CAD). Synthesized 2D images are generated from the tomosynthesis. FINDINGS: The breasts are heterogeneously dense, which may obscure small masses (ACR BI-RADS breast composition Category c). There are no significant masses, abnormal calcifications, or other abnormalities. MM/MM tomosynthesis screening BI IMPRESSION: No mammographic evidence of malignancy. ASSESSMENT: BI-RADS BI-RADS 1 - Negative RECOMMENDATION: Routine annual mammography screening. 1 year F/U This examination should not preclude the clinical evaluation of a suspicious palpable abnormality. This patient's information was entered into a reminder system with a target due date for their next mammogram. Dictated By: Nicky Pollock MD Signed By: <Electronically signed by Nicky Pollock MD in OV> 12/30/23 0735 DD/ 1403 TD/TT: Fleecer: Procedure Note Donotuseinterpreter, Image - 12/30/2023 [facility] [address] [place] [address] Mammography Report Signed Patient: Raven Nevarez RMR# : [id number] : 1965Acct:[id number] Age/Sex: 58 / FADM Date: 12/04/23 Loc: HO.MAMMO Attending Dr: Bisi Carpenter MD Ordering Physician: Bisi Carpenter MDResults: 1Negati ve Date of Service: 12/04/23Follow Up: 1 Year From Orig inal Mammogram Procedure(s): MM tomosynthesis screening BI Accession Number(s): [id number] cc: Bisi Carpenter MD EXAMINATION: MM SCREENING DIGITAL BREAST TOMOSYNTHESIS, BILATERAL CLINICAL INFORMATION: Screening. Asymptomatic. COMPARISON: Mammography: This study is compared with prior exams dating back to 2019. TECHNIQUE: Digital breast tomosynthesis is performed in both the craniocaudal and mediolateral oblique views along with computer-aided detection (CAD). Synthesized 2D images are generated from the tomosynthesis. FINDINGS: The breasts are heterogeneously dense, which may obscure small masses (ACR BI-RADS breast composition Category c). There are no significant masses, abnormal calcifications, or other abnormalities. MM/MM tomosynthesis screening BI IMPRESSION: No mammographic evidence of malignancy. ASSESSMENT: BI-RADS BI-RADS 1 - Negative RECOMMENDATION: Routine annual mammography screening. 1 year F/U This examination should not preclude the clinical evaluation of a suspicious palpable abnormality. This patient's information was entered into a reminder system with a target due date for their next mammogram. Dictated By: Nicky Pollock MD Signed By: <Electronically signed by Nicky Pollock MD in OV> 12/30/23 0735 DD/ 1403 TD/TT: Fleecer: Bisi Carpenter MD IMG BI PROCEDURES Final Result * (ABNORMAL) Lipid Panel, Standard (03/27/2023 9:42 AM EDT) Triglycerides 58 <150 mg/dL [facility] Comment:Desirable Triglyceri de: less than 150 mg/dLBorderline High Triglyceride 150-199 mg/dLHigh Triglyceride: 200-499 mg/dLVery High Triglyceride: greater than or equal to 5OO mg/dL Cholesterol 264(H) <200 mg/dL [facility] Comment:Desirable Cholestero l: less than 200 mg/dLBorderline High Cholesterol: 200-239 mg/dLHigh Cholesterol: greater than 239 mg/dL LDL Cholesterol Calculated 154(H) <100 mg/dL [facility] Comment:Desirable LDL: less than 100 mg/dLNear Optimal/Above Optimal LDL: 110- 129 mg/dLBorderline High LDL: 130-159 mg/dLHigh LDL: 160-189 mg/dLVery High LDL: greater than or equal to 190 mg/dL HDL Cholesterol 99 >40 mg/dL [facility] Comment:Desirable HDL: great er than 40 mg/dL Note: This HDL assay may give artificially low results in patients with liver disease. Blood Venous blood specimen / Unknown 03/27/2023 9:42 AM EDT 03/27/2023 2:05 PM EDT Bisi Carpenter MD LAB BLOOD ORDERABLES Final Resul t [facility] [address] [place] [address] [phone] * Colonoscopy (03/30/2014 10:18 AM EDT) Anatomical Region Laterality Modality Endoscopy Historical Provider ENDOSCOPY PROCEDURE ORDER HILLARY Final Result from Last 3 Months or Most Recently Relevant to Health Maintenance Insurance [facility] Care Teams Mallet Cutter Relationship Specialty Start Date End Date Piyush Acosta CNP PCP - General Family Medicine 02/22/25
--- OUTSIDE RECORDS SUMMARY | 2025-04-14 14:28 | XMS_ITS | Encounter Summary ---
Author Organization [facility] Address [address] [place] [address] Care Team Providers Care Merchandise For Resale Purchasing Agent Name Role Phone Bisi Carpenter MD Primary Care Provider [phone] Encounter Details Date Type Department Care Team (Late st Contact Info) Description 12/22/2024 Lab Requisition [facility] - Main Lab [address] [place] [address] Josh Bowling MD [address] [place] [address] Cutaneous abscess of left lower limb Social History Tobacco Use Types Packs/Day Years Used Date Smoking Tobacco: Never Assessed Comments Unknown Sex and Gender Information Value Date Recorded Sex Assigned at Not on file Legal Sex Female 8:34 PM EST Gender Identity Not on file Sexual Orientation Not on file documented as of this encounter Plan of Treatment Not on file documented as of this encounter Procedures Procedure Name Priority Date/Time Associated Diagnosis Comments CULTURE ABSCESS WITH GRAM STAIN Routine 12/22/2024 9:30 AM EDT Cutaneous abscess of left lower limb documented in this encounter Results * Culture abscess with gram stain (12/22/2024 9:30 AM EDT) CULTURE, ABSCESS No growth at 3 days 12/25/2024 9:04 AM EDT [facility] Gram Stain Result Many Polymorphonuclear leukocytes 12/25/2024 9:04 AM EDT [facility] Gram Stain Result No epithelial cells seen 12/25/2024 9:04 AM EDT [facility] Gram Stain Result No organisms seen 12/25/2024 9:04 AM EDT [facility] Swab Structure of toe of left foot / Unknown 12/22/2024 9:30 AM EDT 12/22/2024 12:01 PM EDT us Josh Bowling MD LAB MICROBIOLOGY - GENERAL ORD ERABLES Final Result [facility] [address] [place] [address], documented in this encounter Visit Diagnoses Diagnosis Cutaneous abscess of left lower limb documented in this encounter Care Teams Merchandise For Resale Purchasing Agent Relationship Specialty Start Date End Date Bisi Carpenter MD [address] [place] [address] PCP - General 12/25/19 documented as of this encounter
== END 2025-04-14 13:17 | disposition home or self-care (01) ==
LOC: HO.MAMMO 13:16
PROVIDERS: PCP Student in an Organized Health Care Education/Training Program; Visit Provider Student in an Organized Health Care Education/Training Program
DX: Z12.31 Encounter for screening mammogram for malignant neoplasm of breast (principal)
CPT/HCPCS: 77063; 77067

== ENCOUNTER → 2025-04-14 13:30 | Outpatient (BNV) | payer OTHER, SELFPAY | PROVIDERS: PCP Student in an Organized Health Care Education/Training Program; Visit Provider Internal Medicine | DX: Z12.31 Encounter for screening mammogram for malignant neoplasm of breast (principal) | CPT/HCPCS: 77063; 77067 ==

== ENCOUNTER 2025-06-15 08:39 | Outpatient (REF) | payer OTHER, SELFPAY ==
--- OUTSIDE RECORDS SUMMARY | 2025-06-15 08:45 | XMS_ITS | Encounter Summary ---
Author Organization [employer] Address [address] [facility] 7t [place] [address] Care Team Providers Care Pan Shaker Name Role Phone Bisi Carpenter MD Primary Care Provider [phone] Piyush Acosta CNP Primary Care Provider [phone] Encounter Details Date Type Department Care Team (Late st Contact Info) Description 12/14/2024 Orders Only [place] [facility] [address] [place] [address] Provider, MD Anam Social History Tobacco Use [...] as of this encounter Plan of Treatment Upcoming Encounters Date Type Department Care Team (Late st Contact Info) Description 09/01/2025 2:45 PM EST Office Visit [facility] CHC MED & PEDS [address] [place], [place] [phone] Piyush Acosta CNP [address] [place], [place] [phone] documented as of this encounter Procedures Procedure [...] documented as of this encounter Care Teams Pan Shaker Relationship Specialty Start Date End Date Bisi Carpenter MD [address] [place] [address] PCP - General Family Medicine 12/18/19 02/21/25 Piyush Acosta CNP [address] [place] [address] PCP - General Family Medicine 02/22/25 documented as of this encounter
--- OUTSIDE RECORDS SUMMARY | 2025-06-15 08:45 | XMS_ITS | Encounter Summary ---
Author Organization [employer] Address [address] [facility] [address]t [place] [address] Care Team Providers Care Aerospace Medicine Physician Name Role Phone Bisi Carpenter MD Primary Care Provider [phone] Piyush Acosta CNP Primary Care Provider [phone] Encounter Details Date Type Department Care Team (Late st Contact Info) Description 12/08/2024 Orders Only [place] [facility] [address] [place] [address] Provider, MD Anam Social History Tobacco Use Types Packs/Day Years Used Date Smoking Tobacco: Never Smokeless Tobacco: Never Alcohol Use Standard Drinks/Week Comments Yes 0 (1 standard drink = 0.6 oz pur e alcohol) Social Depression Answer Date Recorded Patient Health Questionnaire-9 Score 0 03/27/2023 Housing Stability Answer Date Recorded What is your housing situation today? I have sawpnajennie steinberg 05/13/[address] you [...] Description 09/01/2025 2:45 PM EST Office Visit [facility] MED & PEDS [address] [place], [place] [phone] Piyush Acosta CNP [address] [place] [address] documented as of this encounter Procedures Procedure [...] documented as of this encounter Care Teams Aerospace Medicine Physician Relationship Specialty Start Date End Date Bisi Carpenter MD [address] [place] [address] PCP - General Family Medicine 12/18/19 02/21/25 Piyush Acosta CNP [address] [place] [address] PCP - General Family Medicine 02/22/25 documented as of this encounter
--- OUTSIDE RECORDS SUMMARY | 2025-06-15 08:45 | XMS_ITS | Encounter Summary ---
Author Organization [employer] Address [address] [facility] 7t [place] [address] Care Team Providers Care Director Network Development Name Role Phone Bisi Carpenter MD Primary Care Provider [phone] Piyush Acosta CNP Primary Care Provider [phone] Encounter Details Date Type Department Care Team (Late st Contact Info) Description 03/18/2024 Orders Only [place] [facility] [address] [place] [address] Provider, MD Anam Social History Tobacco Use [...] Description 09/01/2025 2:45 PM EST Office Visit [facility] MED & PEDS [address] [place], [place] [phone] Piyush Acosta CNP [address] [place], [place] [phone] documented as of this encounter Procedures Procedure Name Priority Date/Time Associated Diagnosis Comments COLONOSCOPY Routine 03/30/2014 2:40 PM EDT COLONOSCOPY Routine 03/30/2014 10:18 AM EDT documented in this encounter Results * Colonoscopy (03/30/2014 2:40 PM EDT) Anatomical Region Laterality Modality Endoscopy us Historical Provider MD ENDOSCOPY PROCEDURE ORDER HILLARY Final Result * Colonoscopy (03/30/2014 10:18 AM EDT) Anatomical Region Laterality Modality Endoscopy us Historical Provider ENDOSCOPY PROCEDURE ORDER HILLARY Final Result documented in this encounter Visit Diagnoses Not on filedocumented in this encounter Additional Health Concerns Assessment Noted Time PHQ-9 Depression Total Score: 0 03/27/20 23 9:16 AM EDT documented as of this encounter Care Teams Director Network Development Relationship Specialty Start Date End Date Bisi Carpenter MD [address] [place] [address] PCP - General Family Medicine 12/18/19 02/21/25 Piyush Acosta CNP [address] [place] [address] PCP - General Family Medicine 02/22/25 documented as of this encounter
--- OUTSIDE RECORDS SUMMARY | 2025-06-15 08:45 | XMS_ITS | Encounter Summary ---
Author Organization [employer] [facility] Address [address] [facility] [address] [place] [address] Care Team Providers Care Staff Development Nurse Name Role Phone Bisi Carpenter MD Primary Care Provider [phone] Piyush Acosta CNP Primary Care Provider [phone] Reason for Visit * Reason Comments Med Refill Encounter Details Date Type Department Care Team (Late st Contact Info) Description 01/26/2023 Refill [facility] MED & PEDS [address] [place] [address] Raven Urbina MD [address] [place], [place] [phone] Elevated blood pressure reading in office with [...] Description 09/01/2025 2:45 PM EST Office Visit [facility] CHC MED & PEDS [address] [place], [place] [phone] Piyush Acosta CNP [address] [place] [address] documented as of this encounter Visit Diagnoses Diagnosis Elevated blood pressure reading in office with diagnosis of hypertension documented in this encounter Care Teams Staff Development Nurse Relationship Specialty Start Date End Date Bisi Carpenter MD [address] [place] [address] PCP - General Family Medicine 12/18/19 02/21/25 Piyush Acosta CNP [address] [place] [address] PCP - General Family Medicine 02/22/25 documented as of this encounter
--- OUTSIDE RECORDS SUMMARY | 2025-06-15 08:45 | XMS_ITS | Encounter Summary ---
Author Organization [facility] Address [address] [place] [address] Care Team Providers Care Re Recording Mixer Name Role Phone Bisi Carpenter MD Primary Care Provider [phone] Encounter Details Date Type Department Care Team (Late st Contact Info) Description 12/22/[address] [facility] - Main Lab [address] [place] [address] Josh Bowling MD [address] [place] [phone] Cutaneous abscess of left lower limb Social [...] at 3 days 12/25/2024 9:04 AM EDT [facility] Gram Stain Result Many Polymorphonuclear leukocytes 12/25/2024 9:04 AM EDT [facility] Gram Stain Result No epithelial cells seen 12/25/2024 9:04 AM EDT [facility] Gram Stain Result No organisms seen 12/25/2024 9:04 AM EDT [facility] Swab Structure of toe of left foot / Unknown 12/22/2024 9:30 AM EDT 12/22/2024 12:01 PM EDT us Josh Bowling MD LAB MICROBIOLOGY - GENERAL ORD ERABLES Final Result [facility] ([facility]) [facility] [address] [place] [address], documented in this encounter Visit Diagnoses Diagnosis Cutaneous abscess of left lower limb documented in this encounter Care Teams Re Recording Mixer Relationship Specialty Start Date End Date Bisi Carpenter MD [address] [place] [id number] PCP - General 12/25/19 documented as of this encounter
--- OUTSIDE RECORDS SUMMARY | 2025-06-15 08:45 | XMS_ITS | Clinical Summary ---
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, CMS/HCC V28) 12/17/2024 Social History Tobacco Use Types Packs/Day Years [...] Additional history exists Influenza Vaccine (#1) 2025 3, 06/23/2021, 04/14/2020 Hypertension/CHF/CAD Annual BMP Blood Test [...] Procedure Name Priority Date/Time Associated Diagnosis Comments BASIC METABOLIC PANEL STAT 12/14/2024 1:29 PM EDT from Last 3 Months or Most Recently Relevant to Health Maintenance Results * (ABNORMAL) Basic metabolic panel (12/14/2024 1:29 PM EDT) Sodium 137 133 - 145 mmol/L LAB CHEMISTRY METHOD 12/14/2024 2:19 PM EDT [facility] Potassium 4.3 3.5 - 5.5 mmol/L LAB CHEMISTRY METHOD 12/14/2024 2:19 PM EDT [facility] Chloride 100 96 - 110 mmol/L LAB CHEMISTRY METHOD 12/14/2024 2:19 PM EDT [facility] CO2 27 21 - 32 mmol/L LAB CHEMISTRY METHOD 12/14/2024 2:19 PM EDT [facility] Anion Gap 10 3 - 11 LAB CHEMISTRY METHOD 12/14/2024 2:19 PM [facility] Glucose 139(H) 70 - 100 mg/dL LAB CHEMISTRY METHOD 12/14/2024 2:19 PM T [facility] BUN 14 5 - 25 mg/dL LAB CHEMISTRY METHOD 12/14/2024 2:19 PM [facility] Creatinine 0.94 0.50 - 1.10 mg/dL LAB CHEMISTRY METHOD 12/14/2024 2:19 PM [facility] eGFR 69 >=60 mL/min/1. 73m2 LAB CHEMISTRY METHOD 12/14/2024 2:19 PM EDT [facility] Comment:Calculation based on the Chronic Kidney Disease Epidemiology Collaboration (CKD-EPI) equation refit without adjustment for race. BUN/Creatinine Ratio 14.9 LAB CHEMISTRY METHOD 12/14/2024 2:19 PM [facility] Calcium 9.2 8.5 - 10.5 mg/dL LAB CHEMISTRY METHOD 12/14/2024 2:19 PM [facility] Blood Venous blood specimen / Unknown Venipuncture / Unknown 12/14/2024 1:29 PM EDT 12/14/2024 1:42 PM EDT us Gilson Multani DO LAB BLOOD ORDERABLES Final Result [facility] [address] [place] [address], from Last 3 Months or Most Recently Relevant to Health Maintenance Insurance [facility] Care Teams Cosmetology Teacher Relationship Specialty Start Date End Date Bisi Carpenter MD [address] [place] [address] PCP - General 12/25/19
--- OUTSIDE RECORDS SUMMARY | 2025-06-15 08:46 | XMS_ITS | Clinical Summary ---
Author Organization [employer] Address [address] [facility] [address] [place] [address] Care Team Providers Care Electrician Office Name Role Phone Piyush Acosta CNP Primary Care Provider [phone] Allergies Active Allergy Reactions Criticality Noted Date Comments Gramineae Pollens 11/30/2020 Medications Blood Pressure kit Check BP daily 1 kit 023 Active aspirin 81 MG EC tablet Take 1 tablet by mouth at bed time. Active D3-1000 25 MCG (1000 UT) capsule TAKE 1 CAPSULE (25 MCG) BY MOUTH IN THE MORNING. 90 capsule 3 024 Active hydroCHLOROthiazid e 12.5 MG tabletIndications: Elevated blood pressure reading in office with diagnosis of hypertension TAKE 1 TABLET BY MOUTH EVERY DAY IN THE MORNING 90 tablet 025 Active bisacodyl (Dulcolax) 5 MG EC tablet Take 2 tablets by mouth right before beginning bowel prep. See instructions provided by the office 025 Active cephalexin (Keflex) 500 MG capsule Take 1 capsule by mouth every 6 (six) hours. 025 Active ibuprofen 600 MG tablet TAKE 1 TABLET BY MOUTH EVERY 6 HOURS IF NEEDED FOR MILD PAIN FOR UP TO 10 DAYS. 025 Active polyethylene glycol (GoLYTELY) 236 g solution Take 4L by mouth once for one dose. May substitue any PEG. Starting at 2PM the day before your procedure drink 1 8oz glasses at your own pace until you complete half of the gallon. Finish 2nd half of the gallon at 8PM. 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 60 tablet 11 025 Active mesalamine (Lialda) 1.2 g EC tablet Take 1.2 g by mouth with breakfast. 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 Cervical cancer screening 03/17/2024 Assessment & Plan (03/17/2024 11:27 AM EDT): 58 y.o. here for cervical cancer screening. Will continue monitoring following ASCCP guidelines. Colon cancer screening 03/17/2024 Primary hypertension 03/27/2023 Crohn's disease (CMS/HCC) 11/29/2020 Assessment & Plan (06/01/2025 2:34 PM EST): Orders: mesalamine (Lialda) 1.2 g EC tablet; Take 2 tablets (2.4 g) by mouth with breakfast. 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) 06/01/2025 Travel 05/24/2025 Telephone [facility] [address] [place] [address] Piyush Acosta CNP chart prep 04/30/2025 Refill [facility] [address] [place] [address] Bisi Carpenter MD Elevated blood pressure reading in office with diagnosis of hypertension 04/14/2025 Orders Only [facility] [address] [place] [address] Bisi Carpenter MD from Last 3 Months Immunizations Immunization Administration Dates Next Due Hep A, Adult 10/26/2004,01/24/2004 Hep B, adult 10/26/2004,01/24/2004 Influenza injectable quadriv alent preservative free 03/27/2023,06/23/2021,04/14/2020 Pfizer Covid-19 Vaccine 12+ 11/14/2020 Tdap 06/23/2021 Family History Medical History Relation Name Comments Diabetes Father Diabetes Mother Relation Name Status Comments Father Mother Social History Tobacco Use Types Packs/Day Years Used Date Smoking Tobacco: Never Smokeless Tobacco: Never Tobacco Cessation:Counseling Given: Not Answered Alcohol Use Standard Drinks/Week Comments Yes 0 (1 standard drink = 0.6 oz pur e alcohol) Social Alcohol Answer Date Recorded How often do you have a drink containing alcohol ? 1 06/01/2025 How many drinks containing a lcohol do you have on a typical day when you are drinking? 0 06/01/2025 How often do you have six or more drinks on one occasion? 0 06/01/2025 Depression Answer Date Recorded Patient Health Questionnaire-9 Score 0 06/01/2025 Patient Health Questionnaire-9 Score 0 06/01/2025 Last PHQ-9: Questionnaire Data Not on file 1 08/01/2024 Housing Stability Answer Date Recorded What is your housing situation today? I have swapna steinberg 06/01/[address] you li ve. Do you have problems with any of the following? None of the above 06/01/2025 Food Insecurity Answer Date Recorded Within the past 12 months, y ou worried that your food would run out before you got money to buy more: Never True 06/01/2025 Within the past 12 months,th e food you bought just didn't last and you didn't have enough money to get more: Never True Transportation Answer Date Recorded In the past 12 months, has l ack of transportation kept you from medical appts, meetings, work or from getting things needed for daily living? No 06/01/2025 Utilities Answer Date Recorded In the past 12 months, has t he electric, gas, oil or water company threatened to shut off services in your home? No 06/01/2025 Depression Answer Date Recorded Patient Health Questionnaire-2 Score 0 06/01/2025 Internet Access Answer Date Recorded Internet Access Q1 Yes 06/01/2025 Internet Access Q2 Not on file 06/01/2025 Comments No Sex and Gender Information Value Date Recorded Sex Assigned at Female 05/14/2022 10:17 AM EDT Legal Sex Female 10:17 AM EDT Gender Identity Female 03/17/2024 4:43 PM EDT Sexual Orientation Straight 03/13/2023 11 :11 AM EDT Last Filed Vital Signs Vital Sign Reading Time Taken Comments Blood Pressure 134/86 06/01/2025 2:04 PM EST Pulse 80 06/01/2025 2:04 PM EST Temperature 36.6 C (97.8 F) 06/01/2025 2:04 PM EST Respiratory Rate 16 06/01/2025 2:04 PM EST Oxygen Saturation 96% 06/01/2025 2:04 PM EST Inhaled Oxygen Concentration - - Weight 74.4 kg (164 lb) 06/01/2025 2:04 PM EST Height 170.2 cm (5' 7 ) 06/01/2025 2:04 PM EST Body Mass Index 25.69 06/01/2025 2:04 PM EST Plan of Treatment Upcoming Encounters Date Type Department Care Team (Late st Contact Info) Description 09/01/2025 2:45 PM EST Office Visit [facility] [address] [place] [address] [place], [facility] [address] [place] [address] Health Maintenance Due Date Last Done Comments CT Colonography 1965 FIT DNA/Cologuard 1965 FIT 1965 FOBT 1965 HIV Screening 1965 Sigmoidoscopy 1965 Hepatitis C Screening 09/16/1981 Hepatitis B Vaccines (3 of 3 - 19+ 3-dose series) 12/21/2004 10/26/2004, 01/24/2004 Pneumococcal Vaccine: 50+ Years (1 of 1 - PCV) 09/16/2013 Zoster Vaccines (1 of 2) 09/16/2013 Influenza Vaccine (#1) 2026 , 06/23/2021, 04/14/2020 Postponed from 03/15/2025 (Patient Refused) Mammogram 04/14/2026 04/14/2025, 11/13, 11/08/2022, Additional history exists Alcohol/Substance Use Screening 06/01/2026 06/01/2025 COVID-19 Vaccine ( season) 2026 06/14/2022, 03/11/2022, 11/14/2020, Additional history exists Postponed from 03/15/2025 (Patient Refused) Depression Screening 06/01/2026 06/01/2025, 06/01/20 25 Disability Screening 06/01/2026 06/01/2025 SDOH Screening 06/01/2026 06/01/2025 Tobacco Screening 06/01/2026 06/01/2025 Lipid Panel 03/27/2028 03/27/2023, 08/15/2021 Cervical Cancer Screening 03/17/2029 HPV/Cotest 03/17/2029 03/17/2024 Pap Smear 03/17/2029 03/17/2024, 12/13/2020 Colonoscopy 03/30/2030 03/30/2014, 03/30/2014 Colorectal Cancer Screening 03/30/2030 DTaP/Tdap/Td Vaccines (2 - Td or Tdap) [...] Procedure Name Priority Date/Time Associated Diagnosis Comments BI MAMMOGRAM SCREENING TOMOSYNTHESIS BILATERAL Routine 04/14/2025 1:41 PM EDT THINPREP IMAGING PAP AND HPV MRNA E6/E7 Routine 03/17/2024 11:25 AM EDT LIPID PANEL, STANDARD Routine 03/27/2023 9:42 AM EDT Primary hypertension COLONOSCOPY Routine 03/30/2014 10:18 AM EDT from Last 3 Months or Most Recently Relevant to Health Maintenance Results * BI Mammogram Screening Tomosynthesis Bilateral (04/14/2025 1:41 PM EDT) Anatomical Region Laterality Modality Breast Bilateral Mammography 04/14/2025 1:41 PM EDT Narrative 04/20/2025 3:16 PM EDT [facility] [address] [place] [address] Mammography Report Signed Patient: Raven Nevarez MR# : [id number] : 1965 Acct:[id number] Age/Sex: 59 / F ADM Date: 04/14/25 Loc: HO.MAMMO Attending Dr: Bisi Carpenter MD Ordering Physician: Bisi Carpenter MD Results: 1Negati ve Date of Service: 04/14/25 Follow Up: 1 Year From Orig ina Mammogram Procedure(s): MM tomosynthesis screening BI Accession Number(s): [id number] cc: Bisi Carpenter MD Reason For Exam: SCREENING EXAMINATION: MM SCREENING DIGITAL BREAST TOMOSYNTHESIS, BILATERAL CLINICAL INFORMATION: Screening. Asymptomatic. COMPARISON: Mammography: Comparison is made with available priors TECHNIQUE: Digital breast mammography with tomosynthesis is performed in both the craniocaudal and mediolateral oblique views along with computer-aided detection (CAD). FINDINGS: The breasts are heterogeneously dense, which may obscure small masses. There are no significant masses, abnormal calcifications, or other abnormalities. MM/MM tomosynthesis screening BI IMPRESSION: No mammographic evidence of malignancy. ASSESSMENT: BI-RADS Category 1: Negative RECOMMENDATION: Routine annual mammography screening. 1 year F/U This examination should not preclude the clinical evaluation of a suspicious palpable abnormality. This patient's information was entered into a reminder system with a target due date for their next mammogram. Electronically signed by: Jessica Rico DO 04/20/2025 03:13 PM EDT Dictated By: Jessica Rico DO Signed By: <Electronically signed by Jessica Rico DO in OV> 04/20/25 1513 DD/ 1341 TD/TT: 04/14/25 1350 Flight Engineer Instructor: Procedure Note Donotuseinterpreter, Image - 04/20/2025 [facility] [address] [place] [address] Mammography Report Signed Patient: Raven Nevarez RMR# : [id number] : 1965Acct:[id number] Age/Sex: 59 / FADM Date: 04/14/25 Loc: HO.MAMMO Attending Dr: Bisi Carpenter MD Ordering Physician: Bisi Carpenter MDResults: 1Negati ve Date of Service: 04/14/25Follow Up: 1 Year From [facility] Mammogram Procedure(s): MM tomosynthesis screening BI Accession Number(s): [id number] cc: Bisi Carpenter MD Reason For Exam: SCREENING EXAMINATION: MM SCREENING DIGITAL BREAST TOMOSYNTHESIS, BILATERAL CLINICAL INFORMATION: Screening. Asymptomatic. COMPARISON: Mammography: Comparison is made with available priors TECHNIQUE: Digital breast mammography with tomosynthesis is performed in both the craniocaudal and mediolateral oblique views along with computer-aided detection (CAD). FINDINGS: The breasts are heterogeneously dense, which may obscure small masses. There are no significant masses, abnormal calcifications, or other abnormalities. MM/MM tomosynthesis screening BI IMPRESSION: No mammographic evidence of malignancy. ASSESSMENT: BI-RADS Category 1: Negative RECOMMENDATION: Routine annual mammography screening. 1 year F/U This examination should not preclude the clinical evaluation of a suspicious palpable abnormality. This patient's information was entered into a reminder system with a target due date for their next mammogram. Electronically signed by: Jessica Rico DO 04/20/2025 03:13 PM EDT RP Dictated By: Jessica Rico DO Signed By: <Electronically signed by Jessica Rico DO in OV> 04/20/25 1513 DD/ 1341 TD/TT: 04/14/25 1350 Flight Engineer Instructor: Bisi Carpenter MD IM BI PROCEDURES Final Result * [facility] Pap and HPV mRNA E6/E7 (03/17/2024 11:25 AM EDT) HPV nRNA E6/E7 Not Detected Not Detected [facility] Comment:Methodology: Transcr iption-Mediated AmplificationThis assay detects E6/E7 viral messenger RNA (mRNA) from 14high-risk HPV types (16,18,31,33,35,39,45,51,52,56,58,59,66,68).Cervical sources are required for HPV testing.If a vaginal source from a patient who has had atotal hysterectomy with removal of cervix wassubmitted, please contact the testing laboratoryfor alternative testing options.For additional information, please refer [email or web address]/faq/[email or web address](This link if provided for information/educational purposes only.)THIS TEST WAS PERFORMED AT:[facility] [place] [phone] DOMINGO MD SOURCE: SEE NOTE [facility] Comment:Cervix Report Status: TNP [facility] Clinical Information: SEE NOTE [facility] Comment:Routine exam LMP: SEE NOTE [facility] Comment:NONE GIVEN Prev. PAP: SEE NOTE [facility] Comment:NONE GIVEN Prev. BX: SEE NOTE [facility] Comment:NONE GIVEN Statement Of Adequacy: SEE NOTE [facility] Comment:SATISFACTORY FOR MAHESH AHMADI General Categorization: [facility] Interpretation/Result: SEE NOTE [facility] Comment:Cytology Results: Ne gative for intraepitheliallesion or malignancy. Cytology Comment SEE NOTE [facility] Comment:This Pap test has be en evaluated with computerassisted technology. Animal Shelter Supervisor: SEE NOTE [facility] Comment:KR, CT(ASCP)CT scree madonna location: [place] [address] Review Animal Shelter Supervisor: [facility] Pathologist [facility] PAP Infection [facility] See Note SEE NOTE [facility] Comment:EXPLANATORY NOTE:The Pap is a screening test for cervical cancer. It isnot a diagnostic test and is subject to false negativeand false positive results. It is most reliable when asatisfactory sample, regularly obtained, is submittedwith relevant clinical findings and history, and whenthe Pap result is evaluated along with historic andcurrent clinical information. 03/17/2024 11:2 5 AM EDT 03/17/2024 2:39 PM EDT Narrative [facility] - 03/20/2024 11:18 AM EDT SEE SCANNED RESULTS IN EMRROUTINECERVICAL us Raven Urbina MD LAB PATHOLOGY ORDERABLES Maria Guadalupe l Result [facility] [address] [place] [address] [phone] * (ABNORMAL) Lipid Panel, Standard (03/27/2023 9:42 AM EDT) Triglycerides 58 <150 mg/dL [facility] Comment:Desirable Triglyceri de: less than 150 mg/dLBorderline High Triglyceride 150-199 mg/dLHigh Triglyceride: 200-499 mg/dLVery High Triglyceride: greater than or equal to 5OO mg/dL Cholesterol 264(H) <200 mg/dL [facility] Comment:Desirable Cholestero l: less than 200 mg/dLBorderline High Cholesterol: 200-239 mg/dLHigh Cholesterol: greater than 239 mg/dL LDL Cholesterol Calculated 154(H) <100 mg/dL [facility] Comment:Desirable LDL: less than 100 mg/dLNear Optimal/Above Optimal LDL: 110- 129 mg/dLBorderline High LDL: 130-159 mg/dLHigh LDL: 160-189 mg/dLVery High LDL: greater than or equal to 190 mg/dL HDL Cholesterol 99 >40 mg/dL [facility] Comment:Desirable HDL: great er than 40 mg/dL Note: This HDL assay may give artificially low results in patients with liver disease. Blood Venous blood specimen / Unknown 03/27/2023 9:42 AM EDT 03/27/2023 2:05 PM EDT Bisi Carpenter MD LAB BLOOD ORDERABLES Final Resul t [facility] [address] [place] [phone] * Colonoscopy (03/30/2014 10:18 AM EDT) Anatomical Region Laterality Modality Endoscopy Historical Provider ENDOSCOPY PROCEDURE ORDER HILLARY Final Result from Last 3 Months or Most Recently Relevant to Health Maintenance Insurance [employer] 3 Care Teams Electrician Office Relationship Specialty Start Date End Date Piyush Acosta CNP PCP - General Family Medicine 02/22/25
[2025-06-15 14:49] LABS: MANUAL DIFF FLAG NO
[2025-06-15 14:54] LABS: Hematocrit 35.8 % (37.0-47.0); Hemoglobin 11.3 g/dl (12.0-16.0); Imm Gran Abs Auto 0.00 X10*3/uL (0.00-0.03); Imm Gran Pct Auto 0.0 % (0.0-0.4); Lymphocytes Absolute Auto 1.6 X10*3/uL (1.2-4.9); Mean Corpuscular HGB Conc 31.6 g/dl (31.0-35.0); Mean Corpuscular Hemoglobin 27.8 pg (27.0-33.0); Mean Corpuscular Volume 88.2 fL (80.0-98.0); NRBC Abs Auto 0.000 X10*3/uL (0.0-0.012); NRBC Pct Auto 0.0 /100WBC (0.0-0.2); Platelet Count 279 X10*3/uL (160-400); Red Blood Count 4.06 X10*6/uL (4.20-5.50); White Blood Count 3.9 X10*3/uL (4.8-10.8)
[2025-06-15 15:02] LABS: Alanine Aminotransferase 25 U/L (0-31); Albumin Level 4.3 g/dL (3.5-5.0); Alkaline Phosphatase 57 U/L (39-117); Anion Gap 11 (12-20); Aspartate Amino Transferase 21 U/L (5-31); Blood Urea Nitrogen 11 mg/dL (9-16); Calcium 10.0 mg/dL (8.4-10.2); Carbon Dioxide 28 mmol/L (22-29); Chloride 106 mmol/L (96-108); Cholesterol 212 mg/dL (<200); Estimated Glomerular Filt Rate > 60; HDL Cholesterol 84 mg/dL (>40); Potassium 4.4 mmol/L (3.3-5.1); Sodium 141 mmol/L (135-145); Total Protein 6.9 g/dL (6.5-8.0); Triglycerides 51 mg/dL (<150)
[2025-06-16 05:12] LABS: HIV Num 1 0.08 S/CO (0.00-0.99); ~HepC Num1 0.13 S/CO (0.00-0.79); ~Hepatitis C Antibody Nonreactive (Nonreactive)
== END 2025-06-15 08:40 | disposition home or self-care (01) ==
LOC: HO.CHCLDS 08:39
DX: Z11.59 Encounter for screening for other viral diseases (principal); Z11.4 Encounter for screening for human immunodeficiency virus [HIV]; Z76.89 Persons encountering health services in other specified circumstances
CPT/HCPCS: 36415; 80053; 80061; 83036; 85025; 86803; 87389